=== PATIENT | female | born 1930 | race Caucasian/White ===

== ENCOUNTER → 2016-10-11 | Outpatient (REF) | payer MEDICARE ==
[~2016-10-11] MED LIST: /ADVA50050 IN; /ATOR40TA OR; /ESCI10TA OR; /ESOM40CA OR; /MOXI40TA OR; ACET-654 PO; ACET50TA PO; ALBU83IN IN; AMLO10TAB OR; ASPI81CH PO; ATIV0.5T3 PO; CALCIUM CARBONATE PO; CIPR500T89 PO; CLOP75TA2 PO; COLA100C2 OR; COZA100T2 PO; FLAG500T PO; FLUT50SP INH; KLON0.5T OR; LEVO500T PO; OXYGEN; PAIN325T PO; PRED-454 OR; PRED10PA PO; PRED10TA OR; PRED10TA2 OR; PRED20TA OR; PRED20TA PO; SENN8.6T76 PO; SENO8.6T5 PO; SENO8.6T9 PO; TESS100C PO; VENTAER INH; ZOLO25TA OR; [UNRECOGNIZED DRUG - OTHER] PO; oxygen
== END ==
LOC: SKLAB3 15:08
PROVIDERS: ATTEND Internal Medicine
DX: Z79.899 Other long term (current) drug therapy (principal)

== ENCOUNTER → 2016-11-21 | Outpatient (REF) ==
[2016-11-21 13:56] LABS: BASO % 0.4 % (0.0-1.0); EOS # 0.1 K/mm3 (0.0-0.50); EOS % 0.7 % (0.0-3.0); LARGE UNSTAINED CELL # 0.3 K/mm3 (0.0-0.4); LARGE UNSTAINED CELL % 2.1 % (0.0-4.0); LYMPH # 1.7 K/mm3 (1.5-4.5); LYMPH % 11.8 % (24.0-44.0); MEAN CORPUSCULAR HEMOGLOBIN 32.1 pg (27.0-33.0); MEAN CORPUSCULAR HGB CONC 32.3 g/dl (32.0-36.5); MEAN CORPUSCULAR VOLUME 99.6 fl (80.0-96.0); MONO # 0.6 K/mm3 (0.0-0.8); MONO % 4.2 % (0.0-5.0); NEUTROPHILS # 11.5 K/mm3 (1.8-7.7); NEUTROPHILS % 80.9 % (36.0-66.0); PLATELET COUNT, AUTOMATED 167 k/mm3 (150-450); RED CELL DISTRIBUTION WIDTH 12.2 % (11.5-14.5); WHITE BLOOD COUNT 14.2 K/mm3 (4.0-10.0)
--- NOTE | 2016-11-21 13:58 | REP ---
Clinical: Chest pain and febrile. Comparison: 09/11/2013. Findings: Mediastinum and cardiac silhouette are normal. Lung marinelli demonstrate diffuse chronic interstitial changes similar to prior examination with superimposed right upper lobe, right lower lobe and possibly left lower lobe infiltrate/atelectasis. No definite effusion. No pneumothorax. Skeletal structures demonstrate osteopenia and degenerative changes. Impression: Chronic changes with superimposed multifocal infiltrates/atelectasis suggested. Signed by Rishabh Farrar MD 11/21/2016 01:50 P
[2016-11-21 14:12] LABS: ANION GAP 6 MEQ/L (8-16); BLOOD UREA NITROGEN 12 MG/DL (7-18); CALCIUM LEVEL 9.2 MG/DL (8.8-10.2); CARBON DIOXIDE LEVEL 34 MEQ/L (21-32); CHLORIDE LEVEL 101 MEQ/L (98-107); CREATININE FOR GFR 0.62 MG/DL (0.55-1.02); GLOMERULAR FILTRATION RATE > 60.0 (>32); GLUCOSE, FASTING 117 MG/DL (83-110); POTASSIUM SERUM 3.9 MEQ/L (3.5-5.1); SODIUM LEVEL 141 MEQ/L (136-145)
== END ==
LOC: SKLAB3 12:39
PROVIDERS: ATTEND Internal Medicine
DX: R50.9 Fever, unspecified (principal)

== ENCOUNTER 2016-12-15 07:35 | Emergency (ER) | payer MEDICARE, MEDICAID ==
[~2016-12-15] VITALS: Ht 160 cm; Wt 54.5 kg
[2016-12-15] MEDS ORDERED: dexameTHASONE 4 MG/ML 1ML VIAL (J1100) PO ONE (08:15)
[2016-12-15] MEDS ORDERED: BREO1INH INH (08:38)
[2016-12-15] MEDS ORDERED: VENL37TA PO (08:38)
[2016-12-15] MEDS ORDERED: CLON0.5T PO ×2 (08:38→08:41)
[2016-12-15] MEDS ORDERED: RANI15ELUD PO (08:38)
[2016-12-15] MEDS ORDERED: TRAV04OPD OU (08:41)
[2016-12-15] MEDS ORDERED: MULTLIQ PO (08:41)
[2016-12-15] MEDS ORDERED: INSUDET SC (08:41)
[2016-12-15] MEDS ORDERED: LIDOCAINE 2% MDV 20 ML VIAL SC ONE (08:45)
--- NOTE | 2016-12-15 09:59 | REP ---
CT of the brain without IV contrast: Comparison is 09/26/2016. There is no subdural or epidural hematoma. There is no edema, mass effect or midline shift and there is no subarachnoid or intraparenchymal hemorrhage. Ventricles and sulci are moderately enlarged compatible with diffuse volume loss. This is unchanged. There are lucencies in the subcortical white matter compatible with chronic microvascular ischemia. This is unchanged. There are lacunar infarcts in the basal ganglia bilaterally. This is unchanged. Impression: There is no significant interval change. Signed by Rick Valencia MD 12/15/2016 09:50 A
--- NOTE | 2016-12-15 10:07 | REP ---
CT of the cervical spine: Axial images are acquired helical scanning in the reformatted sagittal coronal projections. The skull base, C1-C2 are unremarkable except for osteoarthritis. Vertebral body heights and alignment are normal. The facets are normally aligned. There is degenerative disc disease throughout the cervical spine. There is no spondylolisthesis. There is diffuse demineralization. The visualized mastoid air cells are clear. There are polyp/cysts inferiorly in the maxillary sinuses bilaterally. The prevertebral soft tissues are unremarkable. The facets are normally aligned. There is osteoarthritis in the facets. There are no posterior element fractures. Impression: There is no fracture or listhesis. There is multilevel degenerative disc disease and there is facet osteoarthritis. There are polyps/cysts inferiorly in the maxillary sinuses. Signed by Rick Valencia MD 12/15/2016 09:59 A
[2016-12-15 10:12] VITALS: BP 192/100
== END 2016-12-15 10:15 | disposition home or self-care (01) ==
LOC: M ED 08:17
DX: S01.112A Laceration without foreign body of left eyelid and periocular area, initial encounter (principal); W19.XXXA Unspecified fall, initial encounter; Y92.129 Unspecified place in nursing home as the place of occurrence of the external cause; Y93.9 Activity, unspecified; Y99.9 Unspecified external cause status; E11.9 Type 2 diabetes mellitus without complications; F03.90 Unspecified dementia, unspecified severity, without behavioral disturbance, psychotic disturbance, mood disturbance, and anxiety; J44.9 Chronic obstructive pulmonary disease, unspecified; K21.9 Gastro-esophageal reflux disease without esophagitis; I10 Essential (primary) hypertension; H40.9 Unspecified glaucoma; Z79.82 Long term (current) use of aspirin; Z79.899 Other long term (current) drug therapy; Z88.1 Allergy status to other antibiotic agents; Z88.5 Allergy status to narcotic agent; Z88.0 Allergy status to penicillin; Z88.2 Allergy status to sulfonamides; Z91.012 Allergy to eggs

== ENCOUNTER → 2016-12-19 | Outpatient (REF) | payer MEDICARE ==
[~2016-12-19] MED LIST changes: +BREO1INH INH; +CLON0.5T PO; +INSUDET SC; +MULTLIQ PO; +RANI15ELUD PO; +TRAV04OPD OU; +VENL37TA PO
--- NOTE | 2016-12-19 10:02 | REP ---
AP LATERAL LEFT ANKLE: 12/19/2016 CLINICAL HISTORY: Trauma, patient fell. Hematoma left foot and ankle. FINDINGS: Two views show a transverse fracture through the distal fibular shaft. There is soft tissue swelling about the lateral ankle. The mortise joint was symmetric and preserved. There is no talar dome or osteochondral defect. Tiny spurs at the Achilles insertion of plantar calcaneus noted. Talonavicular and calcaneocuboid joints normal. Swelling all around the ankle and hind foot. IMPRESSION: 1. Transverse fracture through the distal fibular shaft above the ankle joint. No disruption of the mortise joint. Small heel spurs noted. Signed by Ric Cr MD 12/19/2016 07:51 P
--- NOTE | 2016-12-19 10:04 | REP ---
LEFT FOOT SERIES COMPLETE: 12/19/2016 CLINICAL HISTORY: Trauma. Patient fell. Hematoma left foot and ankle. COMPARISON: Left ankle series today. FINDINGS: There are transverse fractures through the proximal shafts of the 2nd and 3rd metatarsals with only a cortex width displacement and no angulation. I do not see disruption of the TMT joints. The 1st, 4th and 5th metatarsals are intact. Tarsal bones and articulations are grossly intact. Tiny plantar and Achilles insertion heel spurs are noted. Subtalar joints are intact. Fracture transversely through the distal shaft of the fibula above the ankle joint is seen as on the ankle series. The phalanges, MTP and IP joints grossly intact. IMPRESSION: 1. Transverse fractures through the proximal shafts of the 2nd and 3rd metatarsals without disruption of the TMT joints. No other metatarsal, tarsal or phalangeal fracture identified. Swelling about the foot and hind foot/ankle with transverse fracture through the distal fibula above the ankle joint. Signed by Ric Cr MD 12/19/2016 07:51 P
--- NOTE | 2016-12-19 11:44 | REP ---
AP PORTABLE CHEST: 12/19/2016 COMPARISON: 11/21/2016, 09/30/2016. CLINICAL HISTORY: Pain in the left ribs, chest wall region after a fall. FINDINGS: Lungs are adequately inflated. There is some right-sided lateral pleural thickening at the CP angle, which could be scar or small effusion. The patchy infiltrates or atelectasis seen in the right base and mid lung zone on the previous exam are clear. There is underlying fibrosis and COPD with some pulmonary venous hypertension. No pulmonary edema or dense consolidation. The left CP angle is sharply defined with no gross evidence of effusion. Bones are demineralized. There are degenerative changes in the shoulders and spine. Clavicle without gross fracture. Visualized ribs show no displaced fracture or focal lesion. IMPRESSION: 1. Chronic changes of COPD, some fibrosis without new or superimposed acute infiltrates. The patchy atelectasis or infiltrates in the right base and right mid lung zone on the previous study are improved blunting of the left CP angle and thickening of the pleura represent some scar or small effusion. 2. Bones demineralized. No visible or displaced fracture. Exam limited for evaluation for fracture as described above. No pneumothorax. No left effusion. Signed by Ric Cr MD 12/19/2016 07:58 P
--- NOTE | 2016-12-19 13:24 | CR.PDOC ---
[facility] Consultation Consultation DATE OF CONSULTATION: Dec 19, 2016 at 08:10 ATTENDING PHYSICIAN: Dr. Ramiro Tadeo REASON FOR CONSULTATION/CHIEF COMPLAINT: Left ankle/foot fracture. HISTORY OF PRESENT ILLNESS: patient is an 86 y/o female admitted to [facility] for rehabilitation after a CVA in September 2016 which caused left sided weakness who sustained an unwitnessed fall from standing height yesterday. She had radiographs which demonstrated left ankle and foot fractures. Patient does not have recollection of the fall. She denies any antecedent chest pain, shortness of breath, headache, dizziness, or nausea prior to her fall. PAST MEDICAL HISTORY: 1. Diabetes mellitus. 2. Compression fractures of the back. 3. Asthma. 4. Osteoporosis. 5. Hypertension. 6. Hyperlipidemia. 7. Gastroesophageal reflux disease (GERD). 8. Depression. 9. Coronary artery disease 10. CVA per HPI PAST SURGICAL HISTORY: 1. appendectomy 2. hysterectomy FAMILY HISTORY: non contributory SOCIAL HISTORY: Marital status and/or living arrangements: lives in [facility] Tobacco use:denies history of tobacco use REVIEW OF SYSTEMS: CONSTITUTIONAL: no recent fevers, chills, or night sweats. HEENT: + laceration to left side of scalp from yesterdays fall. . CARDIOVASCULAR: + CAD. RESPIRATORY: No cough, wheeze, or SOB. GENITOURINARY: no urgency or burning with urination. MUSCULOSKELETAL: + ankle and foot fractures per HPI. + osteoporosis. GASTROINTESTINAL: No nausea, vomiting, or diarrhea. SKIN: + blister on dorsum of left foot. NEUROLOGICAL: + CVA in September per HPI. PHYSICAL EXAMINATION: VITAL SIGNS: Please see below. GENERAL APPEARANCE: Well nourished female, in no acute distress. HEENT: 1cm laceration on left side of face just above left eye, primarily closed with suture. + left periorbital edema and ecchymosis RESPIRATORY: non labored breathing. CARDIOVASCULAR: 1+ DP/PT pulses. BCR to al toes LLE. EXTREMITIES: Focused exam of the left lower extremity demonstrates diffuse ecchymosis from the mid leg distally to the dorsum of the foot. There is a 5cm in diameter serous blister on the dorsum of the foot. The patient is maximally tender about the lateral aspect of the ankle ad dorsum of the foot/ Able to flex /extend all toes and dorsiflex/plantarflex ankle. Full painless knee ROM. No pain with logroll. NEUROLOGICAL: sensation/motor intact in LLE tibial, sural, sapheous, SPN, DPN distributions. LABORATORY DATA: Please see below. Radiographs: PLain radiographs of the left foot and ankle demonstrates a fracture of the left distal fibula with minimal displacement and no syndesmotic widening. There are also fractures of the bases of the second, 3rd, and 4th metatarsals with minimal displacement. ASSESSMENT: 86 y/o female with above medical history who sustained a mechanical fall from standing height with left ankle and midfoot fractures PLAN: 1. Fractures will be treated nonoperatively. Patient was placed into a short leg fiberglass cast at the bedside. 2. May weight bear through left heel for transfers/toileting only for 6 weeks. 3. Total of 6 weeks of cast treatment 4. Patient will require cast removal and repeat xray in 6 weeks. 5. Follow up as outpatient with [facility] 6. If patient remains at [facility] at 6 week follow up, please call [facility] answering service to arrange for cast removal/xray, repeat evaluation at the bedside Thank you for the consultation Allergies Coded Allergies: Penicillins (Verified Allergy, Intermediate, HIVES, 10/03/12) Penicillins Cross Reactors (Verified Allergy, Intermediate, HIVES, 10/03/12) Clarithromycin (Verified Allergy, Unknown, 10/03/12) Eggs or Egg-derived Products (Verified Allergy, Unknown, 10/03/12) Niacin (Verified Allergy, 10/03/12) Sulfa Drugs (Verified Allergy, 10/03/12) Sulfa Drugs Cross Reactors (Verified Allergy, 10/03/12) Tetanus Toxoid (Verified Allergy, 10/03/12) Morphine (Verified Adverse Reaction, Mild, VOMITING, 10/03/12) Home Medications Scheduled (Senna) 1 Tab Tab, 0.5 TAB PO QHS, (Reported) (Aspirin) 81 Mg Chw, 81 MG PO DAILY, (Reported) (Multivitamin & Mineral) 1 Liq Liq, 1 LIQ PO DAILY, (Reported) Albuterol Sulfate (Albuterol Sulfate) 0.083 % Neb, 0.083 % IN Q4HP, (Reported) Amlodipine Besylate (Amlodipine Besylate) 10 Mg Tab, 10 MG OR DAILY, (Reported) Atorvastatin Calcium (Lipitor) 40 Mg Tab, 40 MG OR QHS, (Reported) Clonazepam (Clonazepam) 0.5 Mg Tab, 0.5 MG PO BID, (Reported) Fluticasone/Vilanterol (Breo Ellipta 100-25 Mcg/INH) 1 Inh Inh, 1 PUFF INH DAILY , (Reported) Insulin Detemir (Levemir) 1 Units/0.01 Ml Susp, 10 UNITS SC BID, (Reported) Ranitidine HCl (Ranitidine HCl) 150 Mg/10 Ml Syrp, 150 MG PO BID, (Reported) Travoprost (Travatan Z) 50 Drop/2.5 Ml Soln, 1 DROP OU DAILY, (Reported) Venlafaxine HCl (Venlafaxine HCl) 37.5 Mg Tab, 75 MG PO QHS, (Reported) Scheduled PRN Acetaminophen (Acetaminophen 325 Mg) 325 Mg Tab, 650 MG PO Q4HP PRN for PAIN, ( Reported) Albuterol Sulfate (Ventolin Hfa) Aer, 90 MCG INH Q4HP PRN for SHORTNESS OF BREATH, (Reported) Clonazepam (Clonazepam) 0.5 Mg Tab, 0.25 MG PO for ANXIETY, (Reported) SHADI TADEO MD Dec 19, 2016 13:24
== END ==
LOC: M RAD 08:10
PROVIDERS: ATTEND Internal Medicine
DX: S82.422A Displaced transverse fracture of shaft of left fibula, initial encounter for closed fracture (principal); S92.322A Displaced fracture of second metatarsal bone, left foot, initial encounter for closed fracture; S92.332A Displaced fracture of third metatarsal bone, left foot, initial encounter for closed fracture; W19.XXXA Unspecified fall, initial encounter; Y92.89 Other specified places as the place of occurrence of the external cause; Y93.89 Activity, other specified; Y99.8 Other external cause status; J44.9 Chronic obstructive pulmonary disease, unspecified

== ENCOUNTER → 2016-12-21 | Outpatient (REF) | payer MEDICARE | LOC: SKLAB3 13:55 | PROVIDERS: ATTEND Internal Medicine | DX: R32 Unspecified urinary incontinence (principal) ==

== ENCOUNTER → 2016-12-22 | Outpatient (CLI) | payer MEDICARE ==
[~2016-12-22] MED LIST changes: +E-Z-PAQUE 96% w/w SUSP 176GM BTL As Ordered ONE; +VARIBAR NECTAR 40% w/v 240ML SUSP BTL As Ordered ONE; +VARIBAR PUDDING 40% w/v 230ML TUBE As Ordered ONE
--- NOTE | 2016-12-22 14:56 | REP ---
NADEENIE SWALLOW: The procedure was performed under the direct supervision of Dr. Hernandez. The procedure was performed with Manuela Duarte from speech pathology present. 5 mL aliquots of nectar pudding, solid and thin consistency barium was administered. There is no evidence of penetration or aspiration. A detailed report of this examination will be provided by speech pathology. 36 seconds of fluoroscopy time was utilized for this procedure. Reviewed by ELIZABETH Anderson 12/22/2016 03:08 PEdited and Signed by Carroll Hernandez MD 12/22/2016 04:17 P
== END ==
LOC: M ST 07:55
PROVIDERS: ATTEND Nurse Practitioner Adult Health
DX: R13.10 Dysphagia, unspecified (principal)
CPT/HCPCS: 74230; 92611; G8996; G8997; G8998

== ENCOUNTER → 2016-12-30 | Outpatient (REF) | payer MEDICARE ==
[~2016-12-30] MED LIST changes: -E-Z-PAQUE 96% w/w SUSP 176GM BTL As Ordered ONE; -VARIBAR NECTAR 40% w/v 240ML SUSP BTL As Ordered ONE; -VARIBAR PUDDING 40% w/v 230ML TUBE As Ordered ONE
[2016-12-30 13:11] LABS: ANION GAP 6 MEQ/L (8-16); BLOOD UREA NITROGEN 12 MG/DL (7-18); CALCIUM LEVEL 9.7 MG/DL (8.8-10.2); CARBON DIOXIDE LEVEL 33 MEQ/L (21-32); CHLORIDE LEVEL 102 MEQ/L (98-107); CREATININE FOR GFR 0.61 MG/DL (0.55-1.02); GLOMERULAR FILTRATION RATE > 60.0 (>32); GLUCOSE, FASTING 139 MG/DL (83-110); POTASSIUM SERUM 3.6 MEQ/L (3.5-5.1); SODIUM LEVEL 141 MEQ/L (136-145)
== END ==
LOC: SKLAB2 11:27
PROVIDERS: ATTEND Internal Medicine
DX: R41.0 Disorientation, unspecified (principal)

== ENCOUNTER → 2017-01-01 | Outpatient (REF) | payer MEDICARE ==
[2017-01-01 08:59] LABS: ALBUMIN 3.3 GM/DL (3.2-5.2); ALBUMIN/GLOBULIN RATIO 0.97 (1.00-1.93); ALKALINE PHOSPHATASE 116 U/L (45-117); ALT/SGPT 17 U/L (12-78); ANION GAP 6 MEQ/L (8-16); AST/SGOT 16 U/L (15-37); BILIRUBIN,TOTAL 0.3 MG/DL (0.2-1.0); BLOOD UREA NITROGEN 8 MG/DL (7-18); CALCIUM LEVEL 9.8 MG/DL (8.8-10.2); CARBON DIOXIDE LEVEL 32 MEQ/L (21-32); CHLORIDE LEVEL 104 MEQ/L (98-107); CREATININE FOR GFR 0.51 MG/DL (0.55-1.02); GLOMERULAR FILTRATION RATE > 60.0 (>32); GLUCOSE, FASTING 171 MG/DL (83-110); POTASSIUM SERUM 3.2 MEQ/L (3.5-5.1); SODIUM LEVEL 142 MEQ/L (136-145); TOTAL PROTEIN 6.7 GM/DL (6.4-8.2)
== END ==
LOC: SKLAB3 08:00
PROVIDERS: ATTEND Family Medicine
DX: R45.1 Restlessness and agitation (principal)

== ENCOUNTER → 2017-01-03 | Outpatient (REF) | payer MEDICARE ==
[2017-01-03 18:21] LABS: MEAN CORPUSCULAR HEMOGLOBIN 31.9 pg (27.0-33.0); MEAN CORPUSCULAR HGB CONC 32.5 g/dl (32.0-36.5); MEAN CORPUSCULAR VOLUME 98.4 fl (80.0-96.0); RED CELL DISTRIBUTION WIDTH 13.2 % (11.5-14.5); WHITE BLOOD COUNT 11.2 K/mm3 (4.0-10.0)
[2017-01-03 18:42] LABS: ALBUMIN 3.1 GM/DL (3.2-5.2); ALBUMIN/GLOBULIN RATIO 0.86 (1.00-1.93); ALKALINE PHOSPHATASE 137 U/L (45-117); ALT/SGPT 20 U/L (12-78); ANION GAP 5 MEQ/L (8-16); AST/SGOT 38 U/L (15-37); BILIRUBIN,TOTAL 0.3 MG/DL (0.2-1.0); BLOOD UREA NITROGEN 15 MG/DL (7-18); CARBON DIOXIDE LEVEL 27 MEQ/L (21-32); CHLORIDE LEVEL 103 MEQ/L (98-107); CREATININE FOR GFR 0.83 MG/DL (0.55-1.02); GLUCOSE, FASTING 247 MG/DL (83-110); SODIUM LEVEL 135 MEQ/L (136-145); TOTAL PROTEIN 6.7 GM/DL (6.4-8.2)
[2017-01-03 18:43] LABS: GLOMERULAR FILTRATION RATE > 60.0 (>32)
== END ==
LOC: M LAB 15:44 → SKLAB3 15:44
PROVIDERS: ATTEND Internal Medicine
DX: R50.9 Fever, unspecified (principal)

== ENCOUNTER → 2017-01-03 | Outpatient (CLI) | payer MEDICARE, MEDICAID ==
--- NOTE | 2017-01-03 17:40 | REPUSA ---
Clinical history: Pain, swelling. Findings: The left common femoral, superficial femoral, popliteal, and other deep venous structures c ompress normally and demonstrate normal color Doppler flow. Normal venous waveforms with augmentation are seen. Impression: No evidence of deep vein thrombosis in the left femoral popliteal venous system.
== END ==
LOC: M RAD 16:24
PROVIDERS: ATTEND Internal Medicine
DX: M79.605 Pain in left leg (principal); R50.9 Fever, unspecified

== ENCOUNTER → 2017-01-11 | Outpatient (REF) | payer MEDICARE ==
[2017-01-11 09:15] LABS: ANION GAP 7 MEQ/L (8-16); BLOOD UREA NITROGEN 12 MG/DL (7-18); CALCIUM LEVEL 9.5 MG/DL (8.8-10.2); CARBON DIOXIDE LEVEL 27 MEQ/L (21-32); CHLORIDE LEVEL 106 MEQ/L (98-107); CREATININE FOR GFR 0.54 MG/DL (0.55-1.02); GLOMERULAR FILTRATION RATE > 60.0 (>32); GLUCOSE, FASTING 149 MG/DL (83-110); POTASSIUM SERUM 4.1 MEQ/L (3.5-5.1); SODIUM LEVEL 140 MEQ/L (136-145)
== END ==
LOC: SKLAB3 12:45
PROVIDERS: ATTEND Internal Medicine
DX: I10 Essential (primary) hypertension (principal); E11.9 Type 2 diabetes mellitus without complications

== ENCOUNTER → 2017-02-18 | Outpatient (CLI) | payer MEDICARE ==
--- NOTE | 2017-02-18 15:39 | REP ---
LEFT LOWER EXTREMITY DUPLEX DOPPLER VENOUS ULTRASOUND: Real-time compresssion and duplex Doppler interrogation of the left lower extremity deep venous system is performed. There is extensive deep vein thrombosis in the common femoral, throughout the superficial femoral and popliteal veins, occlusive in the superficial femoral and popliteal veins extending to the trifurcation vessels. There is partial thrombosis of the left common femoral and profunda veins. IMPRESSION: Diffuse DVT left lower extremity as described above. Signed by Rick Jensen MD 02/18/2017 03:51 P
== END ==
LOC: M RAD 14:42
PROVIDERS: ATTEND Nurse Practitioner Adult Health
DX: R60.0 Localized edema (principal); I82.402 Acute embolism and thrombosis of unspecified deep veins of left lower extremity

== ENCOUNTER → 2017-02-18 | Outpatient (REF) | payer MEDICARE, MEDICAID ==
[2017-02-18 11:10] LABS: MEAN CORPUSCULAR HEMOGLOBIN 31.7 pg (27.0-33.0); MEAN CORPUSCULAR HGB CONC 33.4 g/dl (32.0-36.5); MEAN CORPUSCULAR VOLUME 94.8 fl (80.0-96.0); WHITE BLOOD COUNT 12.2 K/mm3 (4.0-10.0)
[2017-02-18 11:37] LABS: ALBUMIN 3.1 GM/DL (3.2-5.2); ALBUMIN/GLOBULIN RATIO 1.19 (1.00-1.93); ALKALINE PHOSPHATASE 71 U/L (45-117); ALT/SGPT 11 U/L (12-78); ANION GAP 7 MEQ/L (8-16); AST/SGOT 8 U/L (15-37); BILIRUBIN,TOTAL 0.4 MG/DL (0.2-1.0); BLOOD UREA NITROGEN 19 MG/DL (7-18); CALCIUM LEVEL 8.9 MG/DL (8.8-10.2); CARBON DIOXIDE LEVEL 29 MEQ/L (21-32); CHLORIDE LEVEL 103 MEQ/L (98-107); CREATININE FOR GFR 0.68 MG/DL (0.55-1.02); GLOMERULAR FILTRATION RATE > 60.0 (>32); GLUCOSE, FASTING 221 MG/DL (83-110); POTASSIUM SERUM 4.2 MEQ/L (3.5-5.1); SODIUM LEVEL 139 MEQ/L (136-145); TOTAL PROTEIN 5.7 GM/DL (6.4-8.2)
== END ==
LOC: SKLAB3 10:28
PROVIDERS: ATTEND Family Medicine
DX: R60.0 Localized edema (principal); I82.402 Acute embolism and thrombosis of unspecified deep veins of left lower extremity

== ENCOUNTER → 2017-02-25 | Outpatient (REF) | payer MEDICARE, MEDICAID ==
[2017-02-25 08:20] LABS: MEAN CORPUSCULAR HEMOGLOBIN 31.1 pg (27.0-33.0); MEAN CORPUSCULAR HGB CONC 32.8 g/dl (32.0-36.5); RED CELL DISTRIBUTION WIDTH 12.9 % (11.5-14.5); WHITE BLOOD COUNT 9.7 K/mm3 (4.0-10.0)
== END ==
LOC: SKLAB3 06:59
PROVIDERS: ATTEND Internal Medicine
DX: Z51.81 Encounter for therapeutic drug level monitoring (principal); Z79.01 Long term (current) use of anticoagulants

== ENCOUNTER → 2017-03-04 | Outpatient (REF) | payer MEDICARE, MEDICAID ==
[2017-03-04 09:01] LABS: MEAN CORPUSCULAR HEMOGLOBIN 31.2 pg (27.0-33.0); MEAN CORPUSCULAR HGB CONC 32.5 g/dl (32.0-36.5); MEAN CORPUSCULAR VOLUME 96.2 fl (80.0-96.0); RED CELL DISTRIBUTION WIDTH 13.1 % (11.5-14.5); WHITE BLOOD COUNT 9.8 K/mm3 (4.0-10.0)
== END ==
LOC: SKLAB3 08:00
PROVIDERS: ATTEND Internal Medicine
DX: Z51.81 Encounter for therapeutic drug level monitoring (principal); Z79.01 Long term (current) use of anticoagulants

== ENCOUNTER → 2017-04-12 | Outpatient (REF) | payer MEDICARE ==
[2017-04-12 08:42] LABS: MEAN CORPUSCULAR HEMOGLOBIN 30.6 pg (27.0-33.0); MEAN CORPUSCULAR VOLUME 95.5 fl (80.0-96.0); RED CELL DISTRIBUTION WIDTH 13.2 % (11.5-14.5); WHITE BLOOD COUNT 9.1 10^3/uL (4.0-10.0)
[2017-04-12 09:08] LABS: ANION GAP 7 MEQ/L (8-16); BLOOD UREA NITROGEN 12 MG/DL (7-18); CALCIUM LEVEL 9.3 MG/DL (8.8-10.2); CARBON DIOXIDE LEVEL 28 MEQ/L (21-32); CHLORIDE LEVEL 104 MEQ/L (98-107); CREATININE FOR GFR 0.49 MG/DL (0.55-1.02); GLOMERULAR FILTRATION RATE > 60.0 (>32); GLUCOSE, FASTING 70 MG/DL (83-110); POTASSIUM SERUM 3.9 MEQ/L (3.5-5.1); SODIUM LEVEL 139 MEQ/L (136-145)
== END ==
LOC: SKLAB3 12:48
PROVIDERS: ATTEND Family Medicine
DX: I73.9 Peripheral vascular disease, unspecified (principal); E11.9 Type 2 diabetes mellitus without complications

== ENCOUNTER → 2017-05-19 | Outpatient (REF) | payer MEDICARE ==
[2017-05-19 04:03] LABS: MEAN CORPUSCULAR HEMOGLOBIN 30.9 pg (27.0-33.0); MEAN CORPUSCULAR HGB CONC 32.2 g/dl (32.0-36.5); MEAN CORPUSCULAR VOLUME 95.9 fl (80.0-96.0); PLATELET COUNT, AUTOMATED 229 10^3/uL (150-450); RED CELL DISTRIBUTION WIDTH 13.4 % (11.5-14.5)
[2017-05-19 04:15] LABS: ALBUMIN 3.2 GM/DL (3.2-5.2); ALBUMIN/GLOBULIN RATIO 1.03 (1.00-1.93); ALKALINE PHOSPHATASE 78 U/L (45-117); ALT/SGPT 20 U/L (12-78); ANION GAP 4 MEQ/L (8-16); AST/SGOT 12 U/L (7-37); BILIRUBIN,TOTAL 0.2 MG/DL (0.2-1.0); BLOOD UREA NITROGEN 15 MG/DL (7-18); CALCIUM LEVEL 9.7 MG/DL (8.8-10.2); CARBON DIOXIDE LEVEL 35 MEQ/L (21-32); CHLORIDE LEVEL 103 MEQ/L (98-107); CREATININE FOR GFR 0.64 MG/DL (0.55-1.02); GLOMERULAR FILTRATION RATE > 60.0 (>32); GLUCOSE, FASTING 140 MG/DL (83-110); POTASSIUM SERUM 3.6 MEQ/L (3.5-5.1); SODIUM LEVEL 142 MEQ/L (136-145); TOTAL PROTEIN 6.3 GM/DL (6.4-8.2)
== END ==
LOC: SKLAB3 03:31
PROVIDERS: ATTEND Internal Medicine
DX: R11.2 Nausea with vomiting, unspecified (principal); R19.7 Diarrhea, unspecified

== ENCOUNTER → 2017-06-27 | Outpatient (CLI) | payer MEDICARE | LOC: SKLAB3 17:56 | DX: R05 Cough (principal) | CPT/HCPCS: 71010 ==

== ENCOUNTER → 2017-07-05 | Outpatient (REF) | payer MEDICARE | LOC: SKLAB3 10:54 | DX: R05 Cough (principal) | CPT/HCPCS: 71045 ==

== ENCOUNTER → 2017-07-12 | Outpatient (REF) | payer MEDICARE ==
[2017-07-12 10:28] LABS: ANION GAP 6 MEQ/L (8-16); BLOOD UREA NITROGEN 15 MG/DL (7-18); CALCIUM LEVEL 9.4 MG/DL (8.8-10.2); CARBON DIOXIDE LEVEL 33 MEQ/L (21-32); CHLORIDE LEVEL 100 MEQ/L (98-107); GLOMERULAR FILTRATION RATE > 60.0 (>32); GLUCOSE, FASTING 348 MG/DL (83-110); POTASSIUM SERUM 3.7 MEQ/L (3.5-5.1); SODIUM LEVEL 139 MEQ/L (136-145)
[2017-07-12 11:32] LABS: ESTIMATED AVERAGE GLUCOSE 171 MG/DL (60-110); HEMOGLOBIN A1c 7.6 %
== END ==
LOC: SKLAB3 12:56
DX: E11.9 Type 2 diabetes mellitus without complications (principal)
CPT/HCPCS: 83036

== ENCOUNTER → 2017-08-09 | Outpatient (REF) | payer MEDICARE ==
[2017-08-09 14:22] LABS: BASO % 0.3 % (0.0-1.0); EOS # 0.3 10^3/uL (0.0-0.50); HEMATOCRIT 35.5 % (36.0-47.0); HEMOGLOBIN 11.2 g/dl (12.0-16.0); LYMPH # 2.9 10^3/uL (1.5-4.5); LYMPH % 20.2 % (24.0-44.0); MEAN CORPUSCULAR HEMOGLOBIN 30.7 pg (27.0-33.0); MEAN CORPUSCULAR HGB CONC 31.5 g/dl (32.0-36.5); MEAN CORPUSCULAR VOLUME 97.3 fl (80.0-96.0); MONO # 1.5 10^3/uL (0.0-0.8); MONO % 10.3 % (0.0-5.0); NEUTROPHILS # 9.5 10^3/uL (1.8-7.7); NEUTROPHILS % 66.2 % (36.0-66.0); PLATELET COUNT, AUTOMATED 224 10^3/uL (150-450); RED BLOOD COUNT 3.65 10^6/uL (4.00-5.40); RED CELL DISTRIBUTION WIDTH 12.6 % (11.5-14.5); WHITE BLOOD COUNT 14.4 10^3/uL (4.0-10.0)
== END ==
LOC: SKLAB3 12:39
DX: J44.9 Chronic obstructive pulmonary disease, unspecified (principal)
CPT/HCPCS: 71045

== ENCOUNTER → 2017-08-24 | Outpatient (REF) | payer MEDICARE ==
[2017-08-24 09:47] LABS: BASO % 0.2 % (0.0-1.0); EOS % 0.1 % (0.0-3.0); HEMATOCRIT 35.8 % (36.0-47.0); HEMOGLOBIN 11.1 g/dl (12.0-16.0); IMMATURE GRANULOCYTE % 0.5 % (0-3.0); LYMPH # 1.1 10^3/uL (1.5-4.5); LYMPH % 8.7 % (24.0-44.0); MEAN CORPUSCULAR VOLUME 96.8 fl (80.0-96.0); MONO # 0.7 10^3/uL (0.0-0.8); MONO % 5.7 % (0.0-5.0); NEUTROPHILS # 10.9 10^3/uL (1.8-7.7); NEUTROPHILS % 84.8 % (36.0-66.0); PLATELET COUNT, AUTOMATED 211 10^3/uL (150-450); RED CELL DISTRIBUTION WIDTH 13.2 % (11.5-14.5); WHITE BLOOD COUNT 12.9 10^3/uL (4.0-10.0)
[2017-08-24 10:03] LABS: ANION GAP 5 MEQ/L (8-16); BLOOD UREA NITROGEN 13 MG/DL (7-18); CALCIUM LEVEL 8.6 MG/DL (8.8-10.2); CARBON DIOXIDE LEVEL 35 MEQ/L (21-32); CHLORIDE LEVEL 100 MEQ/L (98-107); CREATININE FOR GFR 0.61 MG/DL (0.55-1.30); GLOMERULAR FILTRATION RATE > 60.0 (>32); GLUCOSE, FASTING 229 MG/DL (70-100); NT-PRO BNP 2580 PG/ML (<450); POTASSIUM SERUM 3.8 MEQ/L (3.5-5.1); SODIUM LEVEL 140 MEQ/L (136-145)
== END ==
LOC: SKLAB3 08:57
DX: R09.89 Other specified symptoms and signs involving the circulatory and respiratory systems (principal)
CPT/HCPCS: 71045